=== PATIENT | male | born 1965 | race Asian ===

== ENCOUNTER 2016-08-01 08:31 | Day surgery (SDC) | payer OTHER ==
[~2016-08-01] VITALS: Ht 172.7 cm; Wt 79.4 kg
--- NOTE | 2016-08-01 07:08 | PCM.HPANE ---
Patient Data Surgeon Admitting Provider: Attending Provider:Sukhwinder Morton MD Primary Care Physician:Rocio Other Provider:Assoc[facility] BethLynco Anesthesia Reason for Visit Positive Fit Test, Gerd Ht/WT & BMI Body Mass Index Allergies Coded Allergies: No Known Allergies (Verified Allergy, Unknown, 07/31/16) Past Anesthesia History Anesthesia History: Denies:: Abnormal Airway, Anesthesia Reactions, Difficult Intubation, Fam Anesthesia Reaction, Fam Malignant Hypertherm, Malignant Hyperthermia Medications Reported Medications Colchicine 0.6 Mg Capsule0.6 Mg PO DIRECTED PRN gout 08/01/16 Allopurinol 300 Mg [id number] Mg PO DAILY Ref 0 07/31/16 History History of ENT Problems?: No HEENT History: Denies:: Abnormal Airway Cataracts Difficult Intubation Dysphagia Glaucoma Hearing Problem Sinus Problem TMJ Denture Type: None Teeth Condition: Within Normal Limits Hx of Heart Problems?: No Cardiovascular History: Denies:: AICD Abdominal Aortic Aneurism Atrial Fibrillation Cardiac Surgery Chest Pain Congestive Heart Failure Coronary Artery Disease Edema Heart Murmur Hypertension Irregular Heartbeat Pacemaker Peripheral Vascular Rheumatic Fever Thrombophlebitis Valvular Heart Disease Hx of Respiratory Problem?: Yes Respiratory History: Denies:: Asthma COPD Chest Surgery Cough Dyspnea Emphysema Hemoptysis Oxygen Administration Pneumonia Pulmonary Embolism Tuberculosis Use of C-PAP Machine Use of Inhalers / NEBS Other Resp Pertinent History: smoker Hx Neurologic Problems?: No Neurological History: Denies:: Alzheimer's Disease CVA Dementia Dizziness Headaches Multiple Sclerosis Parkinson's Disease Peripheral Neuropathy Seizures TIA Hx of GI Problems?: Yes Other GI Pertinent History: refulx Hx of Problems?: No Hx Musculoskeletal Problems?: Yes Other History/Comment gout Hx of Psycho/Social Problems?: No Hx Surgeries?: No Smoking Status: Current Every Day Smoker Have You Smoked inLast 12 mo: Yes Stop/Bang RODRIGUEZ Risk Assessment: Low Risk, <3 Yes Risk Assessment Category Category 1A: Patient has history of documented sleep apnea, and HAS NOT received any narcotic, sedative or anesthesia administration during this stay. Category 1B: Patient has history of documented sleep apnea, and HAS received any narcotic , sedative or anesthesia administration during this stay Category 2: Patient has SUSPECTED Obstructive Sleep Apnea, and HAS received any narcotic , sedative or anesthesia administration during this stay. Category 3: Patient has SUSPECTED Obstructive Sleep Apnea and HAS NOT received narcotic, sedative or anesthesia administration during this stay. Category 4: Outpatient in Procedural Areas with known sleep apnea or who screen positive for High Risk via the STOP/BANG questionnaire. Exam Exam General Appearance: Alert, Oriented X3, Cooperative, No Acute Distress HEENT/AIRWAY: MP 2 Lungs: Clear to Auscultation, Normal Air Movement Heart: Exam Unremarkable, Regular Rate/Rhythm, No Murmurs/Rubs/Gallops Plan Impression Patient chart reviewed, patient interviewed and anesthestic plan with risks, benefits, and alternatives discussed, and informed consent obtained. NPO per Anesth. Guidelines: Yes ASA Physical Status: ASA2 Mod Systemic Disease Anesthetic Plan: MAC Bene/Risks/Altern/Consents: Yes HP Complete Prior to Induction: Yes Julio Gill MD Aug 01, 2016 07:08
[~2016-08-01 08:31] MED LIST: ALLO300T2 PO; Lactated Ringer's 1,000 ML IV ONE
[2016-08-01] MEDS ORDERED: fentaNYL-PF 50 mCg/mL 2 mL Inj ONE (08:32)
[2016-08-01] MEDS ORDERED: Propofol 10,000 mCg/mL 20 mL Inj ONE (08:32)
[2016-08-01] MEDS ORDERED: COLC0.6C3 PO (08:54)
[2016-08-01 08:55] VITALS: BP 128/86; PULSE 71; RESP 14; O2SAT 97
[2016-08-01] MEDS ORDERED: Lactated Ringer's 1,000 ML IV SCH (09:34)
--- NOTE | 2016-08-01 09:34 | PCM.ANEP1 ---
Post Anesthesia Phase 1 PACU Phase 1 Assessment Vital Signs Vital Signs Date Time Temp Pulse Resp B/P Pulse Ox O2 Delivery O2 Flow Rate FiO2 08/01/16 08:55 71 14 128/86 97 Room Air Anesthetic Administered: MAC Level of Alertness: Awake, talking SAHU's with Equal Strength: Yes Pain: No Nausea or Vomiting: No Oxygen Delivery: Nasal Cannula Lungs: Clear to Auscultation, Normal Air Movement Julio Gill MD Aug 01, 2016 09:34
[2016-08-01] MEDS ORDERED: Ondansetron 2 mg/mL 2 mL Inj IVPUSH PRN (09:35)
[2016-08-01] MEDS ORDERED: MetoCLOpramide 5 mg/mL 2 mL Inj IVPUSH PRN (09:35)
[2016-08-01 09:40] VITALS: BP 110/75; PULSE 68; RESP 16; O2SAT 95
[2016-08-01 10:01] VITALS: BP 97/66; PULSE 77; RESP 16; O2SAT 96
--- NOTE | 2016-08-01 10:03 | ENDO ---
[address] [address] ENDOSCOPY PROCEDURE PATIENT: VIVIANA DELUNA : 1965 MR#: [id number] ADMIT: 08/01/2016 JOB ID: [id number] TYPE OF OPERATION: Esophagogastroduodenoscopy with biopsy, and colonoscopy with hot snare polypectomy x6, biopsy x1, and hemoclip x2. PREOPERATIVE DIAGNOSIS(ES): 1. Gastroesophageal reflux disease. 2. Positive FIT test. POSTOPERATIVE DIAGNOSIS(ES): 1. Mild nonerosive gastritis. 2. Mild distal esophagitis. 3. There were seven total polyps seen in the colon, largest size 1 cm, status post hot snare polypectomy and two hemoclips placed at two different polypectomy sites. 4. A 2 mm cecal polyp, removed by cold biopsy forceps. ANESTHESIA: Monitored anesthesia care. COMPLICATIONS: None. BLOOD LOSS: Minimal. DESCRIPTION OF PROCEDURE: After risks and benefits explained to the patient, informed consent was obtained. After anesthesia was administered, an upper endoscope was inserted in the mouth and intubated the esophagus. The stomach, second portion of duodenum, and mucosa was carefully examined. After the procedure was done, the scope withdrawn and procedure terminated. A colonoscope was inserted per rectum to cecum. Mucosa carefully examined. Prep of the patient was excellent. After the procedure was done, the scope withdrawn and procedure terminated. FINDINGS: Upon inspection of the esophagus, there is mild distal esophagitis that was seen. Z-line located 40 cm from incisors. Upon entering the stomach, there is mild nonerosive gastritis. No masses, ulcers, lesions were seen. Retroflexion was normal. Duodenal bulb, first and second portion were normal. Biopsies taken in the antrum, body and distal esophagus. Upon inspection of the anus, no masses, hemorrhoids, ulcers, or fissures that were seen. Throughout the entire examination, there were 7 total polyps, and 6 of them removed by hot snare polypectomy. One was removed by cold biopsy forceps, in which the largest size was 1 cm in diameter, status post hot snare polypectomy and biopsy x1. There was also some mild bleeding after the post polypectomy site in the ascending colon and sigmoid, in which a hemoclip x1 was placed at each polypectomy site. Retroflexion was normal. IMPRESSIONS: 1. Mild distal esophagitis. 2. Mild nonerosive gastritis. 3. Seven polyps removed, largest size 1 cm, status post hot snare polypectomy x6 and biopsy x1. Two hemoclips placed, one of them failed at the post polypectomy site. RECOMMENDATIONS: Await pathology results. If three or more tubular adenoma polyps, the next colonoscopy in three years. If less than three tubular adenoma polyps, next colonoscopy in five years.
[2016-08-01 10:12] VITALS: BP 135/73; PULSE 76; RESP 16; O2SAT 95
--- NOTE | 2016-08-02 11:43 | PATH ---
SURGICAL PATHOLOGY Attending Physician:Sukhwinder Morton MD CASE STATUS: Signed Out PATIENT NAME: VIVIANA DELUNA PID: [id number] : 1965 DATE COLLECTED:08/01/2016 22:09 SPECIMEN: 1: Stomach, Antrum, Biopsy 2: Gastric, Biopsy 3: Esophagus, Biopsy 4: Colon, Biopsy 5: Colon, Biopsy 6: Colon, Biopsy 7: Colon, Biopsy CLINICAL HISTORY: GERD, POSITIVE FECAL IMMUNOCHEMICAL TEST 1). ANTRUM BIOPSY 2). GASTRIC BODY BIOPSY 3). DISTAL ESOPHAGUS BIOPSY 4). SIGMOID COLON POLYPS X4 5). TRANSVERSE COLON POLYP X1 6). ASCENDING COLON POLYP X1 7). CECAL POLYP X1 FINAL DIAGNOSIS: 1. Antrum, Biopsy: Gastric antral and body-type mucosa with no diagnostic abnormality. Negative for Helicobacter organisms by H&E stain. Negative for dysplasia and malignancy. Negative for intestinal metaplasia. 2. Gastric Body, Biopsy: Gastric body-type mucosa with no diagnostic abnormality. Negative for Helicobacter organisms by H&E stain. Negative for intestinal metaplasia, dysplasia, and malignancy. 3. Distal Esophagus, Biopsy: Squamous mucosa with no diagnostic abnormality. No well-preserved glandular epithelium/junctional mucosa identified for evaluation. Negative for dysplasia and neoplasia. No increased inflammatory cells identified. 4. Sigmoid Colon, Polyps, Biopsies: Multiple (approximately 8) portions of tubular adenoma; negative for high-grade dysplasia. Superficial portion of colorectal mucosa x1 with no significant histomorphologic abnormality. 5. Transverse Colon, Polyp, Biopsy: Tubular adenoma; negative for high-grade dysplasia. 6. Ascending Colon Polyp, Biopsy: Portions of tubular adenoma x2; negative for high-grade dysplasia. 7. Cecal Polyp, Biopsy: Tubular adenoma; negative for high-grade dysplasia. ICD10: K63.5 GROSS DESCRIPTION: The specimen is received in seven formalin filled containers labeled with the patient's name. 1). The specimen is sublabeled "antrum" and consists of 2 portions of tissue which aggregate to 0.4 x 0.3 x 0.2 CM. Specimen is entirely submitted in cassette 1A. 2). The specimen is sublabeled "gastric body" and consists of 2 portions of tissue which aggregate to 0.3 x 0.3 x 0.2 CM. The specimen is entirely submitted in cassette 2A. 3). The specimen is sublabeled "distal esophagus" and consists of 2 tiny portions of tissue which aggregate to 0.2 x 0.2 x 0.2 CM. The specimen is entirely submitted in cassette 3A. 4). The specimen is sublabeled "sigmoid colon polyps" and consists of multiple portions of tissue which aggregate to 0.7 x 0.7 x 0.5 CM. The specimen is entirely submitted in cassette 4A. 5). The specimen is sublabeled "transverse colon polyp" and consists of a 0.4 x 0.3 x 0.3 CM portion of tissue which is entirely submitted in cassette 5A. 6). The specimen is sublabeled "ascending colon polyp" and consists of 2 portions of tissue which aggregate to 0.5 x 0.4 x 0.3 CM. The specimen is entirely submitted in cassette 6A. 7). The specimen is sublabeled "cecal polyp" and consists of a 0.6 x 0.3 x 0.2 CM portion of tissue which is entirely submitted in cassette 7A. 08/01/2016 [facility] ICD-9 CODES: CPT CODES: 1: 10390 2: 22154 3: 39968 4: 63061 5: 71642 6: 84560 7: 92156 Electronically Signed Out Genevieve Whitaker MD [facility] Pathology [facility], [place] [address] Technical component performed at [facility], [facility] [address], [place], [address]
== END 2016-08-01 23:59 | disposition home or self-care (01) ==
LOC: END 08:31
PROVIDERS: ATTEND Internal Medicine Gastroenterology
DX: R19.5 Other fecal abnormalities (principal); D12.5 Benign neoplasm of sigmoid colon; D12.3 Benign neoplasm of transverse colon; D12.2 Benign neoplasm of ascending colon; D12.0 Benign neoplasm of cecum; K21.9 Gastro-esophageal reflux disease without esophagitis; K29.70 Gastritis, unspecified, without bleeding; K20.8 Other esophagitis; Q61.3 Polycystic kidney, unspecified; G47.33 Obstructive sleep apnea (adult) (pediatric); F17.210 Nicotine dependence, cigarettes, uncomplicated
CPT/HCPCS: 43239; 45380; 45385; J2250; J3010; J7120